=== PATIENT | male | born 1960 ===

== ENCOUNTER 2023-02-15 06:00 | Day surgery (SDC) | payer OTHER ==
[~2023-02-15 06:00] MED LIST: CHILDREN'S ASPI81 MG PO; METFORMIN HCL500 M4 PO; ZESTRIL2.5 MG PO; ZOCOR20 MG PO
[2023-02-15] MEDS ORDERED: PERCOCET 5-3251 EACH PO (11:21)
[2023-02-15] MEDS ORDERED: NEURONTIN300 MG PO (11:22)
[2023-02-15] MEDS ORDERED: POLY119PG PO (11:22)
== END 2023-02-15 14:20 | disposition home or self-care (01) ==
LOC: CIR.AMB 06:00
PROVIDERS: ATTEND Surgery
DX: K40.90 Unilateral inguinal hernia, without obstruction or gangrene, not specified as recurrent (principal); Z91.041 Radiographic dye allergy status; Z20.822 Contact with and (suspected) exposure to COVID-19; I10 Essential (primary) hypertension; E11.9 Type 2 diabetes mellitus without complications
CPT/HCPCS: 49650; C1781